=== PATIENT | female | born 1990 | race American Indian/Alaskan Native ===

== ENCOUNTER 2021-06-07 19:49 | Emergency (ER) | payer OTHER, SELFPAY ==
[2021-06-07 19:50] VITALS: BP 121/64; PULSE 90; RESP 16; TEMP 35.8; O2SAT 100; BMI 24.4
== END 2021-06-07 21:11 | disposition left against medical advice (07) ==
PROVIDERS: Emergency Provider Emergency Medicine; PCP Internal Medicine
DX: O26.893 Other specified pregnancy related conditions, third trimester (principal); R10.2 Pelvic and perineal pain; Z3A.29 29 weeks gestation of pregnancy
CPT/HCPCS: 99281; 99282

== ENCOUNTER 2021-07-01 06:55 | Emergency (ER) | payer OTHER, SELFPAY ==
[2021-07-01 06:56] VITALS: BP 98/68; PULSE 95; RESP 18; TEMP 36.6; BMI 27.7
--- NOTE | 2021-07-01 07:13 | ED_ITS ---
HPI - Female Genitourinary General Chief complaint: Urogenital-Female Stated complaint: pelvic pain (33 wks preg) Time Seen by Provider: 07/01/21 07:13 Source: patient Mode of arrival: ambulatory Limitations: no limitations History of Present Illness HPI Narrative: [place] MITCHELL elicited complaint: pelvic pain Pertinent past history: other (33 weeks ) Onset (ago): day(s) (2) Location of symptoms: suprapubic and low back Severity: moderate Quality of pain: cramping and dull Consistency: constant and progressively worsening Vaginal discharge: white Vaginal bleeding: none Exacerbating factors: none Relieving factors: none Associated symptoms: abdominal pain and nausea Treatment prior to arrival: none Patient : Yes Related Data Allergies Allergy/AdvReac Type Severity Reaction Status Date / Time No Known Allergies Allergy Verified 06/07/21 19:54 Review of Systems Review of Systems: Constitutional : No Weight loss, No Fever, No Chills ENT/Mouth : No sore throat, No Rhinorrhea Eyes: No Swelling, No Redness Cardiovascular : No Chest Pain, No SOB, NoEdema Respiratory : No Cough, No Sputum, No Wheezing Gastrointestinal : Positive Nausea, no Vomiting, no Diarrhea, positive abdominal Pain, No Hematochezia, No Melena Genitourinary : No Dysuria, No Urinary Frequency, No Hematuria, No Urgency , pos white vaginal discharge, pos pelvic pain Musculoskeletal : No joint pain, No Myalgias, No Joint Swelling Skin : No Skin Lesions, No rash Neuro : No Weakness, No Numbness, No Dizziness, No Headache Psych : No Anxiety/Panic, No Depression Heme/Lymph: No Bruising, No Lymphadenopathy Endocrine : No Polyuria, No Polydipsia All other systems reviewed and are negative. [facility] Past Medical History Attestation statement: The following information was validated with the patient. Medical History Fibromyalgia Lupus Social History Social History (Updated 07/01/21 @ 07:17 by Ana María Stewart DO) Patient Tobacco Use Status: Never used Tobacco Advance Directives: No Advance Directives Information Provided: No Patient : Yes Physical Exam Vital Signs: Vital Signs: Last Vital Signs Temp 97.9 F 07/01/21 06:56 Pulse 95 07/01/21 06:56 Resp 18 07/01/21 06:56 BP 98/68 07/01/21 06:56 Body Mass Index 27.7 Appearance: Alert. Oriented X3. Anxious in pain mild acute distress. Eyes: Pupils equal, round and reactive to light. ENT: Pharynx normal. Neck: Normal inspection. Neck supple. CVS: Normal heart rate and rhythm. Pulses normal. Respiratory: No respiratory distress. Breath sounds normal. Abdomen: Soft and gravid uterus, ttp in lower area : os open to a fingertip, white discharge noted Skin: Skin warm and dry. Normal skin color. Normal skin turgor. Extremities: No lower extremity edema. No calf ttp Neuro: Oriented X 3. No motor deficit. No sensory deficit. Course Course Course Narrative: call to Dr. Barahona 714am FHT 135, baby head is down at this time on limited bedside [place] [facility] [place] call back from Dr. Greenfield - accepted to [facility] under Dr. Griffith patient VS stable on transfer, report given to EMS 735am MDM - Female Genitourinary MDM Narrative Medical decision making narrative: 31 yo female with lupus - comes in with 2 days of abdominal pain and cramping that has worsened, os open to a fingertip, no gush of fluid, no blood, FHT 130s, at this time given 33 weeks and cramping pain will discuss with her OB [place] [facility] [place] patient. Lab Data Labs: Lab Results 07/01/21 Range/Units 07:24 COVID-19 (EROS) Negative (Negative) COVID-19 Clin Com See Note Critical Care Time Critical Care Time Critical Care Time: Yes Total Critical Care Time: 35 Attestation: medical consult, transfer to tertiary center I attest to this time spent taking care of the patient Discharge Plan Discharge Clinical Impression: Pelvic pain Patient Disposition: Xfer [facility] Transfer Details: [facility] Interventions: Acute Care Transfer Worksheet (ED) Last Done: 07/01/21 07:48 Discharge Date/Time: 07/01/21 07:49
[2021-07-01] MEDS: 0.9 % Sodium Chloride 1,000 ML 999 ML IVCONT (07:26)
[2021-07-01 07:45] LABS: COVID-19 Test Negative (Negative)
== END 2021-07-01 07:49 | disposition short-term general hospital (02) ==
PROVIDERS: Emergency Provider Emergency Medicine; PCP Internal Medicine
DX: O26.93 Pregnancy related conditions, unspecified, third trimester (principal); R10.2 Pelvic and perineal pain; Z3A.33 33 weeks gestation of pregnancy; Z20.822 Contact with and (suspected) exposure to COVID-19
CPT/HCPCS: 36415; 87635; 99285

== ENCOUNTER 2022-01-16 08:14 | Emergency (ER) | payer OTHER, SELFPAY ==
[2022-01-16 08:19] VITALS: BP 129/52; PULSE 75; RESP 16; TEMP 37.2; O2SAT 97; BMI 25.7
--- NOTE | 2022-01-16 09:18 | ED_ITS ---
HPI - Back Pain/Injury General Chief Complaint: Back Pain/Injury Stated Complaint: back pain Time Seen by Provider: 01/16/22 08:39 Source: patient Mode of arrival: ambulatory History of Present Illness HPI Narrative: 31-year-old female with a past medical history of fibromyalgia, lupus, chronic back pain, presenting to the ED complaining of acute on chronic low back pain radiating to upper back x6 months. 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 Denies direct trauma/ injury or fall, numbness, tingling, weakness, urinary incontinence /retention, dysuria/ hematuria. Reports LMP 12/12, concern for possible MD elicited complaint: back pain Pertinent past history: prior back pain Onset (ago): month(s) Related Data Previous Rx's Medication Instructions Recorded acetaminophen 500 mg tablet 500 mg PO Q6H PRN #20 tab 01/16/22 (Tylenol Extra Strength) cyclobenzaprine 5 mg tablet 5 mg PO Q8H PRN 5 Days #14 tab 01/16/22 lidocaine 5 % topical patch 1 patch TOPICAL DAILY PRN #30 ea 01/16/22 (Lidoderm) MDD remove after 12 hours naproxen 500 mg tablet 500 mg PO BID PRN 10 Days #20 tab 01/16/22 Allergies Allergy/AdvReac Type Severity Reaction Status Date / Time No Known Allergies Allergy Verified 06/07/21 19:54 Review of Systems Review of Systems: Constitutional: No Fever, No Chills ENT/Mouth: No Ear Pain, No Nasal Congestion, No sore throat, No Rhinorrhea, No Swallowing Difficulty Cardiovascular: No Chest Pain, No SOB Respiratory: No Cough Gastrointestinal: No Nausea, No Vomiting, No Abdominal pain Genitourinary: No Dysuria, No Urinary Incontinence/retention, No Flank Pain Musculoskeletal: +back pain, No Myalgias, No Joint Swelling Skin: No Skin Lesions, No rash Neuro: No Weakness, No Numbness, No Paresthesias Yes all other systems are reviewed and are negative Neurologic: Denies Sensory deficit (Neuro) [facility] Past Medical History Attestation statement: The following information was validated with the patient. Medical History Fibromyalgia Lupus Social History Social History Patient Tobacco Use Status: Never used Tobacco Advance Directives: No Advance Directives Information Provided: No Physical Exam Vital Signs: Vital Signs: Last Vital Signs Temp 98.9 F 01/16/22 08:19 Pulse 75 01/16/22 08:19 Resp 16 01/16/22 08:19 BP 129/52 L 01/16/22 08:19 Pulse Ox 97 01/16/22 08:19 BMI result Body Mass Index 25.7 Const: General: cooperative, healthy appearing and no acute distress Orientation/consciousness: patient oriented x3 Limitations: no limitations HENMT: Head: Yes normal to inspection Ears: hearing grossly normal bilaterally General nose exam: Normal external nose present Face and sinus: Yes normal facial exam Eyes: General: appearance normal, both eyes and all related structures EOM: EOMs intact bilaterally Neck: Neck: Yes normal visual inspection and Yes no meningeal signs Resp: Effort & Inspection: normal respiratory effort and no respiratory distress Cardio: Rate: regular rate Heart sounds: S1 normal heart sound present and S2 normal heart sound present GI: Inspection: Yes normal to inspection Palpation (GI): Soft to palpation, nontender, no guarding and not rigid : General: Yes no CVA tenderness Back/Spine/Pelvis: Other: no midline thoracic /lumbar spinous tenderness / step-off or deformity. Bilateral paraspinal thoracic and lumbar tenderness Back: no CVA tenderness Skin: Rashes: no rashes Wounds: no wounds Neuro: Other: no saddle anesthesia. Ambulating with steady gait. Strength intact throughout General: patient oriented x3, gait normal, tone normal, moves all extremities and no meningeal signs Gait exam (Neuro): Normal gait present Motor exam (neuro): 5/5 motor strength present throughout Sensory Exam: No Sensory deficit (Neuro) Extrem: General: Yes normal to inspection MDM - Back Pain/Injury MDM Narrative Medical decision making narrative: 31-year-old female with a past medical history of fibromyalgia, lupus, chronic back pain, presenting to the ED complaining of acute on chronic low back pain radiating to upper back x6 months. on exam vital signs stable, NAD/nontoxic appearing, no midline spinous tenderness throughout, no red flag symptoms, ambulating with steady gait. Concern for MSK pain /strain/muscle spasming vs radiculopathy. Low concern for cauda equina /cord compression, fracture or UTI/ pyelo/stone. Will rule out Plan: Urine , symptomatic treatment Differential Diagnosis Differential diagnosis: Likely lumbar radiculopathy Medical Records Attestation: I reviewed the patient's medical records. Lab Data Attestation: I reviewed the patient's lab results. Labs: Lab Results 01/16/22 Range/Units 09:22 Urine Test NEGATIVE (NEGATIVE) Discharge Plan Discharge Clinical Impression: Back pain Patient Disposition: Home, Self-Care Instructions: Back Pain (ED) Additional Instructions: your was negative Your pain is likely musculoskeletal Flexeril is a muscle relaxer, take at night as it makes you drowsy, do not drive, drink alcohol, or operate machinery while taking it Naproxen as an anti-inflammatory / pain medication, take with food Lidoderm patches are numbing patches, apply to painful area In addition take Tylenol at home If symptoms persist or worsen, pain becomes unbearable, you developed urinary retention or incontinence, or weakness return to the ED Prescriptions: New acetaminophen [Tylenol Extra Strength] 500 mg tablet 500 mg PO Q6H PRN (Reason: pain or fever) Qty: 20 0RF lidocaine [Lidoderm] 5 % adhesive patch,medicated 1 patch topical DAILY MDD remove after 12 hours PRN (Reason: pain) Qty: 30 0RF Rx Instructions: leave on most painful area for up to 12 hrs naproxen 500 mg tablet 500 mg PO BID PRN (Reason: pain) 10 Days Qty: 20 0RF cyclobenzaprine 5 mg tablet 5 mg PO Q8H PRN (Reason: pain (scale score 7-10)) 5 Days Qty: 14 0RF Referrals: Zhane Orta MD [Primary Care Provider] - 5 days Stand Alone Forms: Work/School Release Interventions: ED Discharge Assessment Last Done: 01/16/22 10:19 Discharge Date/Time: 01/16/22 10:20
[2022-01-16 09:45] LABS: UPreg QC Valid YES; Urine Pregnancy NEGATIVE (NEGATIVE)
[2022-01-16] MEDS: Lidocaine 4 % Patch ADH..PATCH 1 PATCH TRANSDERMA (10:12)
[2022-01-16] MEDS: Ketorolac Tromethamine 30 MG/ML VIAL IM (10:13)
== END 2022-01-16 10:20 | disposition home or self-care (01) ==
PROVIDERS: Physician Assistant; Emergency Provider Emergency Medicine; PCP Internal Medicine
DX: M54.9 Dorsalgia, unspecified (principal)
CPT/HCPCS: 81025; 96372; 99284; J1885

== ENCOUNTER 2023-02-19 07:03 | Emergency (ER) | payer OTHER, SELFPAY ==
--- NOTE | ~2023-02-19 | XR_ITS ---
EXAMINATION: XR LUMBOSACRAL SPINE CLINICAL INFORMATION: Back pain, history of lupus. COMPARISON: None available. TECHNIQUE: Three views of the lumbosacral spine. FINDINGS: There is normal lumbar lordosis and spinal alignment. The vertebral bodies and intervertebral disc spaces are unremarkable. Mild anterior osteophyte formation at L1-2 and L2-3. The soft tissues are unremarkable. XR/XR lumbar spine 2-3V IMPRESSION: Mild anterior osteophyte formation at L1-2 and L2-3 without other significant abnormality.
[2023-02-19 07:11] VITALS: BP 108/64; PULSE 78; RESP 14; TEMP 37.1; O2SAT 98; BMI 26.7
--- NOTE | 2023-02-19 07:46 | PC.NURSE ---
Patient with complaint of spontaneous lower back pain no recent injury/trauma works as [employer]. [employer]OUT with purpose ambulates with slow steady gait. Patient reports some back issues while but not issue recently. AOx 4 neuros intact patient denies any incontinence will CTM
[2023-02-19 08:02] LABS: Appearance Urine Clear; Color Urine Dark Yellow; Glucose Urine UA Negative (Negative); Leukocyte Esterase Urine Trace (Negative); Nitrite Urine Negative (Negative); PH 5.5 (5.0-9.0); Specific Gravity - Urine >= 1.030 (1.005-1.025); UMIC TRIGGER UACC YES; Urine Blood Negative (Negative); Urine Ketones Negative (Negative); Urine Protein Trace mg/dL (Neg-Trace)
[2023-02-19 08:03] LABS: UPreg QC Valid YES; Urine Pregnancy NEGATIVE (NEGATIVE)
[2023-02-19 08:07] LABS: Bacteria Urine 2+ (None Seen); RBC Urine 0-2 /HPF (0-2); Squamous Epithelial Cell Urine >20 /HPF (0-2); UACC Culture Trigger YES
--- NOTE | 2023-02-19 08:17 | ED.BACK ---
HPI - Back Pain/Injury General Chief Complaint: Back Pain/Injury Stated Complaint: back pain Time Seen by Provider: 02/19/23 07:25 Source: patient Mode of arrival: ambulatory History of Present Illness HPI Narrative: This is a 32-year-old female who has known lupus and presents with complaints of acute on chronic mid lower back pain this started yesterday when she picked her child up and has not been associated with any fever, chills, at nausea/vomiting, diarrhea, urinary symptoms, or pain/weakness down either lower extremity. Patient states that she was seen by her charge master coordinator yesterday for her lupus and is currently on hydroxychloroquine and 1 other medication. Related Data Previous Rx's Medication Instructions Recorded acetaminophen 500 mg tablet 500 mg PO Q6H PRN pain or fever 01/16/22 (Tylenol Extra Strength) #20 tabs cyclobenzaprine 5 mg tablet 5 mg PO Q8H PRN pain (scale score 01/16/22 7-10) 5 days #14 tabs lidocaine 5 % topical patch 1 patch topical DAILY PRN pain #30 01/16/22 (Lidoderm) ea naproxen 500 mg tablet 500 mg PO BID PRN pain 10 days #20 07/07/22 tabs Allergies Allergy/AdvReac Type Severity Reaction Status Date / Time No Known Allergies Allergy Verified 07/06/22 13:35 Review of Systems Review of Systems: Pertinent positives and negatives as stated in HPI [facility] Past Medical History Source: nursing notes reviewed Medical History Fibromyalgia Lupus Social History Social History Alcohol intake: unknown Patient Tobacco Use Status: Never used Tobacco Smoked in Last 30 Days: No Use of substances other than those prescribed or required for medical reasons: Unknown Advance Directives: No Advance Directives Information Provided: Yes Physical Exam Vital Signs: Vital Signs: Last Vital Signs Temp 98.8 F 02/19/23 07:11 Pulse 78 02/19/23 07:11 Resp 14 02/19/23 07:11 BP 108/64 02/19/23 07:11 Pulse Ox 98 02/19/23 07:11 O2 Del Method Room Air 02/19/23 07:11 BMI result Body Mass Index 26.7 VITAL SIGNS: Reviewed. GENERAL: Well developed, well nourished, in no acute distress. HEAD: Normocephalic/atraumatic, patient has malar rash EYES: PERRLA, EOMI NECK: Supple, no adenopathy, no midline cervical spine tenderness or step-offs LUNGS: Normal breath sounds. No adventitious sounds or accessory muscle use. SpO2<98> CARDIOVASCULAR: Regular rate and rhythm without noted murmurs ABDOMEN: Soft, non-tender, non-distended with bowel sounds. BACK: Reported tenderness to palpation over mid vertebral at approximate L2 without noted step-offs, there is no fluctuance/erythema MUSCULOSKELETAL: No tenderness, deformities, or effusions noted on gross inspection. EXTREMITIES: No cyanosis, clubbing or edema. SKIN: Inspection of the skin reveals no rashes NEUROLOGIC: Alert and oriented x 4. Strength and sensation to light touch were grossly intact x 4. Medications Administered Discontinued Medications Generic Name Dose Route Start Last Admin Trade Name Freq PRN Reason Stop Dose Admin Acetaminophen 975 mg 02/19/23 08:24 02/19/23 08:50 Acetaminophen 325 Mg Tablet PO 02/19/23 08:25 975 mg ONCE ONE Administration Ibuprofen 400 mg 02/19/23 08:24 02/19/23 08:50 Ibuprofen 400 Mg Tablet PO 02/19/23 08:25 400 mg ONCE ONE Administration Lidocaine 1 patch 02/19/23 08:24 02/19/23 08:49 Lidocaine 4 % Patch Adh..Patch TRANSDERMA 02/19/23 08:25 1 patch ONCE ONE Administration Protocol Medical Decision Making Medical Decision Making MDM Narrative: This is a 32-year-old female with known lupus and known chronic back pain, no red flag symptoms, no concerns for abscess/cauda equina in suspect strictly musculoskeletal. Will get basic labs. 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 I reviewed all investigations in my interpretation is this patient has acute on chronic back pain, there is no elevation of the ESR to suggest lupus exacerbation and all other findings are within normal limits. Patient is otherwise discharged home with instructions follow-up with her primary care provider. Differential Diagnosis Please see the discussion above Lab Data Please see the discussion above 02/19/23 08:13 02/19/23 08:13 Labs: Lab Results 02/19/23 02/19/23 02/19/23 Range/Units 07:52 07:52 08:13 WBC 7.4 (4.8-10.8) X10*3/uL RBC 4.58 (4.20-5.50) X10*6/uL Hgb 13.3 (12.0-16.0) g/dl Hct 39.7 (37.0-47.0) % MCV 86.7 (80.0-98.0) fL MCH 29.0 (27.0-33.0) pg MCHC 33.5 (31.0-35.0) g/dl RDW 12.5 (11.0-16.0) % Plt Count 249 (160-400) X10*3/uL MPV 10.2 (9.4-12.3) fL Immature Gran % (Auto) 0.1 (0.0-0.4) % Neut % (Auto) 72.9 (45-73) % Lymph % (Auto) 18.8 L (20-40) % [place] % (Auto) 5.7 (2-11) % Eos % (Auto) 1.7 (0-4) % Baso % (Auto) 0.8 (0-2) % Lymph # (Auto) 1.4 (1.2-4.9) X10*3/uL [place] # (Auto) 0.4 (0.1-1.2) X10*3/uL Eos # (Auto) 0.1 (0.0-0.4) X10*3/uL Baso # (Auto) 0.1 (0.0-0.2) X10*3/uL Abs Immat Gran (auto) 0.01 (0.00-0.03) X10*3/uL Absolute Neuts (auto) 5.4 (2.0-8.3) x10*3/uL Absolute Nucleated RBC 0.000 (0.0-0.012) X10*3/uL Nucleated RBC % (auto) 0.0 (0.0-0.2) /100WBC ESR (0-20) MM/HR Sodium (135-145) mmol/L Potassium (3.3-5.1) mmol/L Chloride (96-108) mmol/L Carbon Dioxide (22-29) mmol/L Anion Gap (12-20) BUN (9-16) mg/dL Creatinine (0.5-1.4) mg/dL Estim Creat Clear Calc Estimated GFR Random Glucose (60-115) mg/dL Calcium (8.4-10.2) mg/dL Total Bilirubin (0.0-1.0) mg/dL AST (5-31) U/L ALT (0-31) U/L Alkaline Phosphatase (39-117) U/L Total Protein (6.5-8.0) g/dL Albumin (3.5-5.0) g/dL Urine Color Dark Yellow Urine Appearance Clear Urine pH 5.5 (5.0-9.0) Ur Specific [place] >= 1.030 H (1.005-1.025) Urine Protein Trace (Neg-Trace) mg/dL Urine Glucose (UA) Negative (Negative) mg/dL Urine Ketones Negative (Negative) mg/dL Urine Blood Negative (Negative) Urine Nitrite Negative (Negative) Ur Leukocyte Esterase Trace H (Negative) Urine RBC 0-2 (0-2) /HPF Urine WBC 6-10 H (0-5) /HPF Ur Squamous Epith Cells >20 (0-2) /HPF Urine Bacteria 2+ (None Seen) Hyaline Casts 3-5 (0-2) /LPF Urine Test NEGATIVE (NEGATIVE) 02/19/23 02/19/23 Range/Units 08:13 08:13 WBC (4.8-10.8) X10*3/uL RBC (4.20-5.50) X10*6/uL Hgb (12.0-16.0) g/dl Hct (37.0-47.0) % MCV (80.0-98.0) fL MCH (27.0-33.0) pg MCHC (31.0-35.0) g/dl RDW (11.0-16.0) % Plt Count (160-400) X10*3/uL MPV (9.4-12.3) fL Immature Gran % (Auto) (0.0-0.4) % Neut % (Auto) (45-73) % Lymph % (Auto) (20-40) % [place] % (Auto) (2-11) % Eos % (Auto) (0-4) % Baso % (Auto) (0-2) % Lymph # (Auto) (1.2-4.9) X10*3/uL [place] # (Auto) (0.1-1.2) X10*3/uL Eos # (Auto) (0.0-0.4) X10*3/uL Baso # (Auto) (0.0-0.2) X10*3/uL Abs Immat Gran (auto) (0.00-0.03) X10*3/uL Absolute Neuts (auto) (2.0-8.3) x10*3/uL Absolute Nucleated RBC (0.0-0.012) X10*3/uL Nucleated RBC % (auto) (0.0-0.2) /100WBC ESR 14 (0-20) MM/HR Sodium 140 (135-145) mmol/L Potassium 3.7 (3.3-5.1) mmol/L Chloride 107 (96-108) mmol/L Carbon Dioxide 22 (22-29) mmol/L Anion Gap 15 (12-20) BUN 8 L (9-16) mg/dL Creatinine 0.74 (0.5-1.4) mg/dL Estim Creat Clear Calc 91.5 Estimated GFR > 60 Random Glucose 90 (60-115) mg/dL Calcium 8.6 (8.4-10.2) mg/dL Total Bilirubin 0.6 (0.0-1.0) mg/dL AST 13 (5-31) U/L ALT 13 (0-31) U/L Alkaline Phosphatase 123 H (39-117) U/L Total Protein 6.9 (6.5-8.0) g/dL Albumin 4.1 (3.5-5.0) g/dL Urine Color Urine Appearance Urine pH (5.0-9.0) Ur Specific [place] (1.005-1.025) Urine Protein (Neg-Trace) mg/dL Urine Glucose (UA) (Negative) mg/dL Urine Ketones (Negative) mg/dL Urine Blood (Negative) Urine Nitrite (Negative) Ur Leukocyte Esterase (Negative) Urine RBC (0-2) /HPF Urine WBC (0-5) /HPF Ur Squamous Epith Cells (0-2) /HPF Urine Bacteria (None Seen) Hyaline Casts (0-2) /LPF Urine Test (NEGATIVE) Radiology Impression Radiologist Impression: My interpretation is in agreement with radiology's impression of the imaging studies. External Record Review External record reviewed: Outpatient record and Prior outpatient labs Discharge Plan Discharge Clinical Impression: Acute exacerbation of chronic low back pain Patient Disposition: Home, Self-Care Instructions: Lower Back Exercises (ED), Low Back Strain (ED), Back Pain (ED) Additional Instructions: 1. I recommend [id number] Tylenol/ibuprofen as needed for pain control in addition to lidocaine patch. 2. Follow-up with your primary care provider as this person will be able to refer you to physical therapy as needed. Return to the ER for any other worsening symptoms Prescriptions: No Action naproxen 500 mg tablet 500 mg PO BID PRN (Reason: pain) 10 Days Qty: 20 0RF acetaminophen [Tylenol Extra Strength] 500 mg tablet 500 mg PO Q6H PRN (Reason: pain or fever) Qty: 20 0RF lidocaine [Lidoderm] 5 % adhesive patch,medicated 1 patch topical DAILY MDD remove after 12 hours PRN (Reason: pain) Qty: 30 0RF Rx Instructions: leave on most painful area for up to 12 hrs cyclobenzaprine 5 mg tablet 5 mg PO Q8H PRN (Reason: pain (scale score 7-10)) 5 Days Qty: 14 0RF Referrals: Zhane Orta MD [Primary Care Provider] -
[2023-02-19 08:18] LABS: MANUAL DIFF FLAG NO
[2023-02-19 08:22] LABS: Basophils Absolute Auto 0.1 X10*3/uL (0.0-0.2); Basophils Percent Auto 0.8 % (0-2); Eosinophils Absolute Auto 0.1 X10*3/uL (0.0-0.4); Eosinophils Percent Auto 1.7 % (0-4); Hematocrit 39.7 % (37.0-47.0); Hemoglobin 13.3 g/dl (12.0-16.0); Imm Gran Abs Auto 0.01 X10*3/uL (0.00-0.03); Imm Gran Pct Auto 0.1 % (0.0-0.4); Lymphocytes Absolute Auto 1.4 X10*3/uL (1.2-4.9); Lymphocytes Percent Auto 18.8 % (20-40); Mean Corpuscular HGB Conc 33.5 g/dl (31.0-35.0); Mean Corpuscular Volume 86.7 fL (80.0-98.0); Mean Platelet Volume 10.2 fL (9.4-12.3); Monocytes Absolute Auto 0.4 X10*3/uL (0.1-1.2); Monocytes Percent Auto 5.7 % (2-11); Neutrophils Absolute Auto 5.4 x10*3/uL (2.0-8.3); Neutrophils Percent Auto 72.9 % (45-73); Platelet Count 249 X10*3/uL (160-400); Red Blood Count 4.58 X10*6/uL (4.20-5.50); Red Cell Distribution Width 12.5 % (11.0-16.0); White Blood Count 7.4 X10*3/uL (4.8-10.8)
[2023-02-19 08:35] LABS: Alanine Aminotransferase 13 U/L (0-31); Albumin Level 4.1 g/dL (3.5-5.0); Alkaline Phosphatase 123 U/L (39-117); Anion Gap 15 (12-20); Aspartate Amino Transferase 13 U/L (5-31); Bilirubin Total 0.6 mg/dL (0.0-1.0); Blood Urea Nitrogen 8 mg/dL (9-16); Calcium 8.6 mg/dL (8.4-10.2); Carbon Dioxide 22 mmol/L (22-29); Chloride 107 mmol/L (96-108); Creatinine Clr Calc Pharmacy 91.5; Estimated Glomerular Filt Rate > 60; Glucose Random 90 mg/dL (60-115); Potassium 3.7 mmol/L (3.3-5.1); Sodium 140 mmol/L (135-145); Total Protein 6.9 g/dL (6.5-8.0)
[2023-02-19] MEDS: Lidocaine 4 % Patch ADH..PATCH 1 PATCH TRANSDERMA (08:49)
[2023-02-19] MEDS: Acetaminophen 325 MG TABLET 975 MG PO (08:50)
[2023-02-19] MEDS: Ibuprofen 400 MG TABLET PO (08:50)
[2023-02-19 09:08] LABS: Erythrocyte Sedimentation Rate 14 MM/HR (0-20)
[2023-02-19 09:29] VITALS: BP 100/71; PULSE 75; RESP 18; TEMP 36.9; O2SAT 98
== END 2023-02-19 09:36 | disposition home or self-care (01) ==
PROVIDERS: Emergency Provider Student in an Organized Health Care Education/Training Program; PCP Internal Medicine
DX: M54.50 Low back pain, unspecified (principal); Z20.822 Contact with and (suspected) exposure to COVID-19; Z20.828 Contact with and (suspected) exposure to other viral communicable diseases
CPT/HCPCS: 36415; 72100; 80053; 81001; 81003; 81025; 85025; 85652; 87086; 99283; 99284

== ENCOUNTER 2023-04-12 08:11 | Emergency (ER) | payer OTHER, SELFPAY ==
[2023-04-12 08:17] VITALS: BP 116/70; PULSE 78; RESP 18; TEMP 35.9; O2SAT 97; BMI 26.8
--- NOTE | 2023-04-12 08:44 | ECG_ITS ---
Test Reason : Insomnia / Anxiety Blood Pressure : / mmHG Vent. Rate : 064 BPM Atrial Rate : 064 BPM P-R Int : 150 ms QRS Dur : 080 ms QT Int : 410 ms P-R-T Axes : 053 004 013 degrees QTc Int : 422 ms Normal sinus rhythm Normal ECG When compared with ECG of 08-JAN-2020 21:22, No significant change was found Referred By: Nancy Wells Electronically Signed By:Wicho Castro
[2023-04-12 09:04] VITALS: BP 102/64; PULSE 78; RESP 20; TEMP 36.8; O2SAT 99
--- NOTE | 2023-04-12 09:07 | ED_ITS ---
HPI - General Adult General Chief complaint: Psychiatric Symptoms Stated complaint: Crying for no reason Time Seen by Provider: 04/12/23 08:29 Source: patient and RN notes reviewed Mode of arrival: ambulatory Limitations: no limitations History of Present Illness HPI narrative: This is a 33-year-old female, with a past medical history of lupus, presents emergency department with complaints of ?crying for no reason for the last week. Patient reports that she is a single mother of 4 children and reports that she has been feeling overwhelmed over the last several months and has had trouble with her depression, and reports that this past week this has worsened. She states that her emotions have been ?all over the place?, states that she will be happy, sad, frustrated within a short time frame. She states that over the last 4 days she has not been able to sleep as her mind has been racing with the stress that she is having. Patient reports that she has a history of depression and was previously prescribed antidepressants in her teenage years. She also admits that she had depression after having her child, reports her youngest is 1 years old. She denies any suicidal or homicidal ideations. Yes she reports that she feels safe at home, and she would never harm her children. No other complaints or concerns at this time. MD complaint: Depression, anxiety Related Data Previous Rx's Medication Instructions Recorded acetaminophen 500 mg tablet 500 mg PO Q6H PRN pain or fever 01/16/22 (Tylenol Extra Strength) #20 tabs cyclobenzaprine 5 mg tablet 5 mg PO Q8H PRN pain (scale score 01/16/22 7-10) 5 days #14 tabs lidocaine 5 % topical patch 1 patch topical DAILY PRN pain #30 01/16/22 (Lidoderm) ea naproxen 500 mg tablet 500 mg PO BID PRN pain 10 days #20 07/07/22 tabs diphenhydramine HCl 25 mg tablet 25 mg PO BEDTIME PRN sleep #14 tabs 04/12/23 (Benadryl Allergy) melatonin 5 mg tablet 5 mg PO BEDTIME PRN sleep #10 tabs 04/12/23 Allergies Allergy/AdvReac Type Severity Reaction Status Date / Time No Known Allergies Allergy Verified 04/12/23 08:17 Review of Systems Review of Systems: Constitutional: No Weight loss, No Fever, No Chills, No Night Sweats, No Fatigue, No Malaise ENT/Mouth: No Hearing loss, No Ear Pain, No Nasal Congestion, No Sinus Pain, No Hoarseness, No sore throat, No Rhinorrhea, No Swallowing Difficulty Eyes: No Eye Pain, No Swelling, No Redness, No Foreign Body, No Discharge, No Vision Changes Cardiovascular: No Chest Pain, No SOB, No Dyspnea on Exertion, No Orthopnea, No Edema, No Palpitations Respiratory: No Cough, No Sputum, No Wheezing, No Smoke Exposure, No Dyspnea Gastrointestinal: No Nausea, No Vomiting, No Diarrhea, No Constipation, No Abdominal pain, No Hematochezia, No Melena Genitourinary: No irregular bleeding, No Dysuria, No Urinary Frequency, No Hematuria, No Urinary Incontinence/retention, No Urgency, No Flank Pain, No Urinary Flow Changes, No Hesitancy Musculoskeletal: No joint pain, No Myalgias, No Joint Swelling Skin: No Skin Lesions, No rash Neuro: No Weakness, No Numbness, No Paresthesias, No Loss of Consciousness, No Dizziness, No Headache Psych: No Anxiety/Panic, No Depression, No SI/HI/AH/VH, No Social Issues, Heme/Lymph: No Bruising, No Bleeding,No Lymphadenopathy Endocrine: No Polyuria, No Polydipsia, No Temperature Intolerance Yes all other systems are reviewed and are negative Constitutional: Constitutional: Reports as per [facility] [facility] Past Medical History Medical History Fibromyalgia Lupus Social History Social History Alcohol intake: unknown Patient Tobacco Use Status: Never used Tobacco Physical Exam ED Vital Signs: Vital Signs - 24 hr 04/12/23 08:17 04/12/23 09:04 04/12/23 12:00 Temperature 96.6 F L 98.2 F Pulse Rate 78 78 69 Respiratory Rate 18 20 18 Blood Pressure 116/70 102/64 115/79 Pulse Oximetry 97 99 99 Oxygen Delivery Method Room Air Room Air Room Air BMI result Body Mass Index 26.8 Const General: cooperative, comfortable and no acute distress Orientation/consciousness: patient oriented x3 Limitations: no limitations HENMT Head: Yes normal to inspection, Yes normocephalic and Yes atraumatic Ears: hearing grossly normal bilaterally General nose exam: Normal external nose present Face and sinus: Yes normal facial exam Mouth: Normal oral and palatal mucosa present, oropharynx normal and moist mucous membranes Throat: Yes posterior oropharynx normal Eyes General: appearance normal, both eyes and all related structures Eyelids: Yes eyelids normal Conjunctivae: conjunctivae normal Sclerae: sclerae normal Pupils: Equal, round and reactive pupils present EOM: EOMs intact bilaterally Neck Neck: Yes normal visual inspection, Yes full ROM and Yes no lymphadenopathy Lymphatic: no lymphadenopathy noted Chest Chest palpation & inspection: normal inspection of the chest Resp Effort & Inspection: normal respiratory effort and able to speak in complete sentences Auscultation: clear to auscultation bilaterally, no crackles, no rales, no rhonchi and no wheezes Cardio Rate: regular rate Rhythm: regular rhythm Heart sounds: S1 normal heart sound present and S2 normal heart sound present GI Inspection: Yes normal to inspection Skin General skin exam: no rashes or lesions noted Trauma: no lacerations or abrasions Wounds: no wounds Neuro General: patient oriented x3 and moves all extremities Cranial nerves: Yes Equal, round and reactive pupils present Extrem General: Yes normal to inspection Right upper extremity: normal to inspection Left upper extremity: normal to inspection Right lower extremity: normal to inspection Left lower extremity: normal to inspection Psych Appearance: well kempt Mental Status: mental status grossly normal Speech and movement: Normal speech and movement present Affect: Sad affect present and Anxious affect present Attitude: cooperative Thought process: Normal thought process present Thought content: Normal thought content present Course Reevaluation(s) Reevaluation #1: Patient seen and evaluated by CARE team who suggest that a partial program would be beneficial for, starting sometime this week. Lab workup today is unremarkable, total T3 is still pending (send out lab) however TSH and free T4 is normal. Patient has no SI or HI and is feeling safe at. Patient's vital signs are stable, I think it is appropriate to send patient home with a prescription to help with anxiety and insomnia. Discussed this with patient at bedside. Patient is hopeful and grateful for having the services set up through the emergency department today. Patient is stable for discharge Time: 12:13 Medical Decision Making Medical Decision Making MDM Narrative: 33-year-old female presenting to the emergency department for evaluation of worsening sadness and depression. She had a child 1 year ago and has had depression ever since. On exam, patient is tearful, and explains that she is ?crying for no reason?. She has no suicidal or homicidal ideations. She feels safe at home. There is no one at home harming her and does not feel as though she is a threat to her children. She is a single mom and is overwhelmed by the amount of pressure that she is undergoing as well as working a full-time job. She reports that she has no support raising her children. Plan: Basic blood work, EKG, thyroid panel, UA, urine drug screen, ethanol level. Care team for Differential Diagnosis Differential Diagnoses: The differential diagnosis associated with the presentation includes Depression, anxiety, thyroiditis, hypothyroidism, depression Admission/Observation Consideration of admission/observation: Escalation of care including admission/observation considered Lab Data MDM Lab Attestation statement: I reviewed the patient's lab results. 04/12/23 09:10 04/12/23 09:10 Labs: Lab Results 04/12/23 04/12/23 04/12/23 Range/Units 09:10 09:10 09:10 WBC 7.0 (4.8-10.8) X10*3/uL RBC 4.60 (4.20-5.50) X10*6/uL Hgb 13.2 (12.0-16.0) g/dl Hct 39.8 (37.0-47.0) % MCV 86.5 (80.0-98.0) fL MCH 28.7 (27.0-33.0) pg MCHC 33.2 (31.0-35.0) g/dl RDW 12.4 (11.0-16.0) % Plt Count 246 (160-400) X10*3/uL MPV 9.9 (9.4-12.3) fL Immature Gran % (Auto) 0.4 (0.0-0.4) % Neut % (Auto) 71.4 (45-73) % Lymph % (Auto) 19.9 L (20-40) % Benson % (Auto) 6.0 (2-11) % Eos % (Auto) 1.3 (0-4) % Baso % (Auto) 1.0 (0-2) % Lymph # (Auto) 1.4 (1.2-4.9) X10*3/uL Benson # (Auto) 0.4 (0.1-1.2) X10*3/uL Eos # (Auto) 0.1 (0.0-0.4) X10*3/uL Baso # (Auto) 0.1 (0.0-0.2) X10*3/uL Abs Immat Gran (auto) 0.03 (0.00-0.03) X10*3/uL Absolute Neuts (auto) 5.0 (2.0-8.3) x10*3/uL Absolute Nucleated RBC 0.000 (0.0-0.012) X10*3/uL Nucleated RBC % (auto) 0.0 (0.0-0.2) /100WBC Sodium 139 (135-145) mmol/L Potassium 4.0 (3.3-5.1) mmol/L Chloride 105 (96-108) mmol/L Carbon Dioxide 25 (22-29) mmol/L Anion Gap 13 (12-20) BUN 6 L (9-16) mg/dL Creatinine 0.77 (0.5-1.4) mg/dL Estim Creat Clear Calc 87.1 Estimated GFR > 60 Random Glucose 94 (60-115) mg/dL Calcium 8.9 (8.4-10.2) mg/dL Magnesium 1.9 (1.6-2.6) mg/dL Total Bilirubin 0.6 (0.0-1.0) mg/dL Direct Bilirubin 0.2 (0.0-0.5) mg/dL AST 13 (5-31) U/L ALT 13 (0-31) U/L Alkaline Phosphatase 128 H (39-117) U/L Total Protein 6.9 (6.5-8.0) g/dL Albumin 4.1 (3.5-5.0) g/dL Lipase 18 (8-78) U/L TSH 1.53 (0.32-4.0) uIU/mL Free T4 0.98 (0.71-1.85) ng/dL Urine Color Dark Yellow Urine Appearance Cloudy Urine pH 6.0 (5.0-9.0) Ur Specific [place] >= 1.030 H (1.005-1.025) Urine Protein Trace (Neg-Trace) mg/dL Urine Glucose (UA) Negative (Negative) mg/dL Urine Ketones Trace (Negative) mg/dL Urine Blood Negative (Negative) Urine Nitrite Negative (Negative) Ur Leukocyte Esterase Small (1+) H (Negative) Urine RBC 0-2 (0-2) /HPF Urine WBC 6-10 H (0-5) /HPF Ur Squamous Epith Cells 11-20 (0-2) /HPF Urine Bacteria 1+ (None Seen) Hyaline Casts 0-2 (0-2) /LPF Urine Test (NEGATIVE) Urine Opiates Screen (Not Detect) Urine Fentanyl Screen (Not Detect) Ur Barbiturates Screen (Not Detect) Ur Phencyclidine Scrn (Not Detect) Ur Amphetamines Screen (Not Detect) U Benzodiazepines Scrn (Not Detect) Urine Cocaine Screen (Not Detect) U Marijuana (THC) Screen (Not Detect) Ethyl Alcohol < 10 mg/dL 04/12/23 04/12/23 Range/Units 09:10 09:10 WBC (4.8-10.8) X10*3/uL RBC (4.20-5.50) X10*6/uL Hgb (12.0-16.0) g/dl Hct (37.0-47.0) % MCV (80.0-98.0) fL MCH (27.0-33.0) pg MCHC (31.0-35.0) g/dl RDW (11.0-16.0) % Plt Count (160-400) X10*3/uL MPV (9.4-12.3) fL Immature Gran % (Auto) (0.0-0.4) % Neut % (Auto) (45-73) % Lymph % (Auto) (20-40) % Benson % (Auto) (2-11) % Eos % (Auto) (0-4) % Baso % (Auto) (0-2) % Lymph # (Auto) (1.2-4.9) X10*3/uL Benson # (Auto) (0.1-1.2) X10*3/uL Eos # (Auto) (0.0-0.4) X10*3/uL Baso # (Auto) (0.0-0.2) X10*3/uL Abs Immat Gran (auto) (0.00-0.03) X10*3/uL Absolute Neuts (auto) (2.0-8.3) x10*3/uL Absolute Nucleated RBC (0.0-0.012) X10*3/uL Nucleated RBC % (auto) (0.0-0.2) /100WBC Sodium (135-145) mmol/L Potassium (3.3-5.1) mmol/L Chloride (96-108) mmol/L Carbon Dioxide (22-29) mmol/L Anion Gap (12-20) BUN (9-16) mg/dL Creatinine (0.5-1.4) mg/dL Estim Creat Clear Calc Estimated GFR Random Glucose (60-115) mg/dL Calcium (8.4-10.2) mg/dL Magnesium (1.6-2.6) mg/dL Total Bilirubin (0.0-1.0) mg/dL Direct Bilirubin (0.0-0.5) mg/dL AST (5-31) U/L ALT (0-31) U/L Alkaline Phosphatase (39-117) U/L Total Protein (6.5-8.0) g/dL Albumin (3.5-5.0) g/dL Lipase (8-78) U/L TSH (0.32-4.0) uIU/mL Free T4 (0.71-1.85) ng/dL Urine Color Urine Appearance Urine pH (5.0-9.0) Ur Specific [place] (1.005-1.025) Urine Protein (Neg-Trace) mg/dL Urine Glucose (UA) (Negative) mg/dL Urine Ketones (Negative) mg/dL Urine Blood (Negative) Urine Nitrite (Negative) Ur Leukocyte Esterase (Negative) Urine RBC (0-2) /HPF Urine WBC (0-5) /HPF Ur Squamous Epith Cells (0-2) /HPF Urine Bacteria (None Seen) Hyaline Casts (0-2) /LPF Urine Test NEGATIVE (NEGATIVE) Urine Opiates Screen Not Detected (Not Detect) Urine Fentanyl Screen Not Detected (Not Detect) Ur Barbiturates Screen Not Detected (Not Detect) Ur Phencyclidine Scrn Not Detected (Not Detect) Ur Amphetamines Screen Not Detected (Not Detect) U Benzodiazepines Scrn Not Detected (Not Detect) Urine Cocaine Screen Not Detected (Not Detect) U Marijuana (THC) Screen Not Detected (Not Detect) Ethyl Alcohol mg/dL Radiology Impression Discussion of test interpretation with radiology: I have reviewed the radiologist's reading. External Record Review External record reviewed: Inpatient record, Office record, Outpatient record, Prior outpatient labs, Prior outpatient radiology, Primary care record and Outside ED record Discharge Plan Discharge Clinical Impression: Anxiety, Insomnia, Sadness Patient Disposition: Home, Self-Care Instructions: Depression (DC), Depression (ED), Anxiety (ED) Additional Instructions: Please follow-up with the partial program. They will be calling you for further details. You may take prescribed medications as needed to help facilitate with sleep. Please be aware that these medications will cause drowsiness, do not drink alcohol or drive while taking this medication. Only take these medications at night. If any new or worsening symptoms occur please return for re-evaluation. Prescriptions: New diphenhydramine HCl [Benadryl Allergy] 25 mg tablet 25 mg PO BEDTIME MDD may take 2 tabs prn PRN (Reason: sleep) Qty: 14 0RF melatonin 5 mg tablet 5 mg PO BEDTIME PRN (Reason: sleep) Qty: 10 0RF No Action naproxen 500 mg tablet 500 mg PO BID PRN (Reason: pain) 10 Days Qty: 20 0RF acetaminophen [Tylenol Extra Strength] 500 mg tablet 500 mg PO Q6H PRN (Reason: pain or fever) Qty: 20 0RF lidocaine [Lidoderm] 5 % adhesive patch,medicated 1 patch topical DAILY MDD remove after 12 hours PRN (Reason: pain) Qty: 30 0RF Rx Instructions: leave on most painful area for up to 12 hrs cyclobenzaprine 5 mg tablet 5 mg PO Q8H PRN (Reason: pain (scale score 7-10)) 5 Days Qty: 14 0RF Interventions: Smiley-Suicide Risk Severity Scale Last Done: 04/12/23 08:30 ED Discharge Assessment Last Done: 04/12/23 12:35 Discharge Date/Time: 04/12/23 12:36
[2023-04-12 09:20] LABS: MANUAL DIFF FLAG NO
[2023-04-12 09:24] LABS: Basophils Absolute Auto 0.1 X10*3/uL (0.0-0.2); Eosinophils Absolute Auto 0.1 X10*3/uL (0.0-0.4); Eosinophils Percent Auto 1.3 % (0-4); Hematocrit 39.8 % (37.0-47.0); Hemoglobin 13.2 g/dl (12.0-16.0); Imm Gran Abs Auto 0.03 X10*3/uL (0.00-0.03); Imm Gran Pct Auto 0.4 % (0.0-0.4); Lymphocytes Absolute Auto 1.4 X10*3/uL (1.2-4.9); Lymphocytes Percent Auto 19.9 % (20-40); Mean Corpuscular HGB Conc 33.2 g/dl (31.0-35.0); Mean Corpuscular Hemoglobin 28.7 pg (27.0-33.0); Mean Corpuscular Volume 86.5 fL (80.0-98.0); Mean Platelet Volume 9.9 fL (9.4-12.3); Monocytes Absolute Auto 0.4 X10*3/uL (0.1-1.2); Neutrophils Percent Auto 71.4 % (45-73); Platelet Count 246 X10*3/uL (160-400); Red Cell Distribution Width 12.4 % (11.0-16.0)
[2023-04-12 09:29] LABS: Appearance Urine Cloudy; Color Urine Dark Yellow; Glucose Urine UA Negative (Negative); Leukocyte Esterase Urine Small (1+) (Negative); Nitrite Urine Negative (Negative); Specific Gravity - Urine >= 1.030 (1.005-1.025); UMIC TRIGGER UACC YES; Urine Blood Negative (Negative); Urine Ketones Trace mg/dL (Negative); Urine Protein Trace mg/dL (Neg-Trace)
[2023-04-12 09:30] LABS: UPreg QC Valid YES; Urine Pregnancy NEGATIVE (NEGATIVE)
[2023-04-12 09:32] LABS: Amphetamine Screen Urine Not Detected (Not Detect); Barbiturates, Urine Not Detected (Not Detect); Benzodiazepines Screen Urine Not Detected (Not Detect); Cannabinoid Screen Urine Not Detected (Not Detect); Cocaine Screen Urine Not Detected (Not Detect); Fentanyl, urine Not Detected (Not Detect); Opiate Screen Urine Not Detected (Not Detect); Phencyclidine Screen Urine Not Detected (Not Detect)
[2023-04-12 09:44] LABS: Bacteria Urine 1+ (None Seen); Hyaline Casts Urine 0-2 /LPF (0-2); RBC Urine 0-2 /HPF (0-2); UACC Culture Trigger YES
[2023-04-12 09:47] LABS: Alanine Aminotransferase 13 U/L (0-31); Albumin Level 4.1 g/dL (3.5-5.0); Alkaline Phosphatase 128 U/L (39-117); Anion Gap 13 (12-20); Aspartate Amino Transferase 13 U/L (5-31); Bilirubin Direct 0.2 mg/dL (0.0-0.5); Bilirubin Total 0.6 mg/dL (0.0-1.0); Blood Urea Nitrogen 6 mg/dL (9-16); Calcium 8.9 mg/dL (8.4-10.2); Carbon Dioxide 25 mmol/L (22-29); Chloride 105 mmol/L (96-108); Creatinine Clr Calc Pharmacy 87.1; Estimated Glomerular Filt Rate > 60; Ethanol < 10 mg/dL; Glucose Random 94 mg/dL (60-115); Lipase 18 U/L (8-78); Magnesium 1.9 mg/dL (1.6-2.6); Sodium 139 mmol/L (135-145); Total Protein 6.9 g/dL (6.5-8.0)
[2023-04-12 10:06] LABS: Free T4 (Free Thyroxine) 0.98 ng/dL (0.71-1.85); Thyroid Stimulating Hormone 1.53 uIU/mL (0.32-4.0)
[2023-04-12 12:00] VITALS: BP 115/79; PULSE 69; RESP 18; O2SAT 99
--- NOTE | 2023-04-12 12:21 | PC.NURSE ---
pt met with CARE team and is cleared to be discharged home with appt tomorrow with program
--- NOTE | 2023-04-12 13:43 | MHC.CARE ---
CARE Team responded to consult request to speak with this patient who self-presented to the ED this morning with report of feeling overwhelmed with stress and suffering from depression. Patient was seen in room 12 in the main ED, she was alert and oriented, appeared her stated age or younger, maintained eye contact, was polite and engaged. 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 Patient has four young children (12,6,5,1), father of the younger three is unavailable for any financial or other support and her family has been unable to even acknowledge her distress despite her telling them she is struggling. This is likely due to the fact that her brother committed suicide 9 months ago and mother found him though it sounds as if that has been a longstanding issue. Patient was hospitalized at [facility] when she was with her five year-old, stated it was not helpful and she was fearful of the other patients. Has been in therapy in the past and has ideas about two providers that she had been connected with previously. Is not looking for medication but said at this point she would be willing to accept any help, wants to feel stable and be a better parent, able to cope with stress. Patient is not suicidal, is future oriented and help seeking, does not require an inpatient psychiatric admission and would most benefit from the Partial Hospitalization Program here at [facility]. She is willing to change her schedule/take a leave to attend program and appears committed to the process. Intake confirmed for 04/13/23 at 11:00 am and patient will start the following day. ED Provider MAYRA Christine updated and in agreement with plan of care
[2023-04-13 10:33] LABS: Triiodothyronine T3 Total 116 ng/dL (76-181)
== END 2023-04-12 12:36 | disposition home or self-care (01) ==
PROVIDERS: Physician Assistant Medical; Emergency Provider Student in an Organized Health Care Education/Training Program; PCP Internal Medicine
DX: G47.00 Insomnia, unspecified (principal); F41.1 Generalized anxiety disorder; F43.0 Acute stress reaction; O90.6 Postpartum mood disturbance; Z79.899 Other long term (current) drug therapy
CPT/HCPCS: 36415; 80048; 80076; 80307; 81001; 81025; 83690; 83735; 84439; 84443; 84480; 85025; 87086; 93005; 99285

== ENCOUNTER 2023-04-13 12:06 | Outpatient (RCR) | payer OTHER, SELFPAY ==
--- NOTE | 2023-04-14 13:52 | PC.NURSE ---
Patient called and spoke to [facility] staff stating her son has been sick all night vomiting and will not be able to make it to the program as currently is going to an appointment with her son to f/u.
== END 2023-04-13 23:59 | disposition home or self-care (01) ==
LOC: HO.PHPA 12:06
PROVIDERS: Visit Provider Psychiatry & Neurology Psychiatry
DX: F33.2 Major depressive disorder, recurrent severe without psychotic features (principal); F41.1 Generalized anxiety disorder
CPT/HCPCS: 90791

== ENCOUNTER 2025-03-12 18:36 | Emergency (ER) | payer OTHER, SELFPAY ==
--- NOTE | ~2025-03-12 | XR_ITS ---
CLINICAL HISTORY: twisted knee heard snap Four views left knee. Findings: No acute fractures are seen. There is no definite malalignment. No significant joint effusion is seen. Impression: No acute fractures. This document has been electronically signed by: Chi Delgado MD on 03/12/2025 19:50:27
[2025-03-12 18:45] VITALS: BP 123/76; PULSE 108; RESP 19; TEMP 36.6; O2SAT 98; BMI 35.2
--- NOTE | 2025-03-12 18:45 | ED.LOWEXIN ---
HPI - Extremity Injury (Lower) General Chief Complaint: Extremity Injury, Lower Stated Complaint: playing basketball heard Left knee pop cant walk Related Data Previous Rx's ?Medication ?Instructions ?Recorded acetaminophen 500 mg tablet 500 mg PO Q6H PRN pain or fever 01/16/22 (Tylenol Extra Strength) #20 tabs cyclobenzaprine 5 mg tablet 5 mg PO Q8H PRN pain (scale score 01/16/22 7-10) 5 days #14 tabs lidocaine 5 % topical patch 1 patch topical DAILY PRN pain #30 01/16/22 (Lidoderm) ea naproxen 500 mg tablet 500 mg PO BID PRN pain 10 days #20 07/07/22 tabs diphenhydramine HCl 25 mg tablet 25 mg PO BEDTIME PRN sleep #14 tabs 04/12/23 (Benadryl Allergy) melatonin 5 mg tablet 5 mg PO BEDTIME PRN sleep #10 tabs 04/12/23 Allergies Allergy/AdvReac Type Severity Reaction Status Date / Time No Known Allergies Allergy Verified 03/12/25 18:46 PMFSH Past Medical History Medical History Fibromyalgia Lupus Social History Social History Household Members: Children Alcohol intake: unknown Patient Tobacco Use Status: Never used Tobacco Advance Directives: No Advance Directives Information Provided: No Do you have a plan to hurt others: No Plan Physical Exam Vital Signs: Vital Signs: Last Vital Signs Temp 98 F 03/12/25 18:45 Pulse 108 H 03/12/25 18:45 Resp 19 03/12/25 18:45 BP 123/76 03/12/25 18:45 Pulse Ox 98 03/12/25 18:45 O2 Del Method Room Air 03/12/25 18:45 BMI result Body Mass Index 35.2 Course Course Course Narrative: This is a Rapid Medical Examination (RME) performed by Pepito Dexter PA-C in triage. Full HPI, ROS, assessment and treatment plan per primary provider in the Main ED. 03/12/[id number] MAYRA Martinez Hx: 34 yo female here for eval of L knee pain s/p twisting injury while playing basketball [employer]. heard snap in L knee. able to ambulate and drive herself to ED. hx surgery in same knee. PE/vitals: no obvious swelling or deformity to L knee. able to extend. pain on flexion. Plan: xrs Reevaluation(s) Reevaluation #1: Patient left the emergency department before myself or any of the other clinicians could review or explain physical exam findings, test results, need or lack there of for additional testing, treatment options, or a treatment plan. Discharge Plan Discharge Clinical Impression: Sprain of right knee Patient Disposition: Left W/O Completing Treatment Prescriptions: No Action naproxen 500 mg tablet 500 mg PO BID PRN (Reason: pain) 10 Days Qty: 20 0RF acetaminophen [Tylenol Extra Strength] 500 mg tablet 500 mg PO Q6H PRN (Reason: pain or fever) Qty: 20 0RF lidocaine [Lidoderm] 5 % adhesive patch,medicated 1 patch topical DAILY MDD remove after 12 hours PRN (Reason: pain) Qty: 30 0RF Rx Instructions: leave on most painful area for up to 12 hrs cyclobenzaprine 5 mg tablet 5 mg PO Q8H PRN (Reason: pain (scale score 7-10)) 5 Days Qty: 14 0RF diphenhydramine HCl [Benadryl Allergy] 25 mg tablet 25 mg PO BEDTIME MDD may take 2 tabs prn PRN (Reason: sleep) Qty: 14 0RF melatonin 5 mg tablet 5 mg PO BEDTIME PRN (Reason: sleep) Qty: 10 0RF Discharge Date/Time: 03/13/25 02:47
== END 2025-03-13 02:47 | disposition left against medical advice (07) ==
LOC: HO.ED 03-13 02:30
PROVIDERS: Emergency Provider Emergency Medicine
DX: S83.92XA Sprain of unspecified site of left knee, initial encounter (principal); X50.1XXA Overexertion from prolonged static or awkward postures, initial encounter; Y93.67 Activity, basketball; Y92.9 Unspecified place or not applicable; Y99.9 Unspecified external cause status
CPT/HCPCS: 73564; 99281; 99283

== ENCOUNTER → 2025-03-12 18:46 | Outpatient (BNV) | payer OTHER, SELFPAY | PROVIDERS: PCP Internal Medicine; Visit Provider Radiology Diagnostic Radiology | DX: M25.562 Pain in left knee (principal) | CPT/HCPCS: 73564 ==

== ENCOUNTER 2025-06-16 07:09 | Emergency (ER) | payer OTHER, SELFPAY ==
--- NOTE | ~2025-06-16 | XR_ITS ---
CLINICAL HISTORY: FALL, HIP PAIN 3 view, pelvis and right hip Comparison: None provided Findings: No acute fracture or dislocation. No significant arthritic change. The soft tissues are unremarkable. IMPRESSION: No acute findings. This document has been electronically signed by: Rafael Lim MD on 06/16/2025 08:04:34
[2025-06-16 07:27] VITALS: BP 98/59; PULSE 77; RESP 16; TEMP 36.1; O2SAT 99; BMI 34.0
[2025-06-16 07:41] VITALS: BP 113/67; PULSE 85; RESP 14; TEMP 36.6; O2SAT 96
--- OUTSIDE RECORDS SUMMARY | 2025-06-16 07:41 | XMS_ITS | Clinical Summary ---
Author Organization [address] Address [address] [place] [id number] Phone Care Team Providers Care Warp Tension Tester Name Role Phone Rosario Benítez MD Primary Care Provider [phone] Allergies No known active allergies Medications hydroxychloroqu ine (PLAQUENIL) 200 mg tablet Take 1 tablet by mouth daily. 06/10/2021 Active EPINEPHrine (EPIPEN) 0.3 mg/0.3 mL injection Inject 0.3 mL (0.3 mg total) into the thigh if needed for anaphylaxis. Call 911 after use. 2 each 2 02/23/2025 Active cholecalciferol (Vitamin D3) 50 mcg (2,000 unit) capsule Take 1 capsule (2,000 Units total) by mouth 1 (one) time each day. 30 each 11 03/16/2025 03/16/20 26 Active ergocalciferol (VITAMIN D-2) 1,250 mcg (50,000 unit) capsule Take 1 capsule (50,000 Units total) by mouth 1 (one) time per week. 12 capsule 03/16/2025 06/08/20 25 Active Problems Problem Noted Date Diagnosed Date Hyperlipidemia 02/23/2025 Class 1 obesity due to exces s calories with serious comorbidity and body mass index (BMI) of 33.0 to 33.9 in adult 02/23/2025 MDD (major depressive disorder) 02/07/2021 Overview (11/09/2024): Pt reports she is not taking medication, unsure what medication (Zoloft is in med list) and stopped with pregancy. Pt also reports she stopped talking with therapist about 4 months ago because she is too busy, but feels like she is doing alright . Chronic bilateral low back pain with right-sided sciatica 12/20/2020 Overview (11/09/2024): Last Assessment & Plan: Recommend she continue to follow with her PCP for evaluation and management. Discussed that MRI in appears to be safe, however it would be reasonable to defer MRI until after as obtaining an MRI now would not likely change the management approach. She was encouraged to discuss further with her PCP. MDD (major depressive disord er), recurrent episode, moderate ([facility] V24, [facility] V28) 11/23/2019 Overview (11/09/2024): Follows with behavioral health, stopped cymbalta with +hCG Fibromyalgia 06/28/2019 SLE (systemic lupus erythema tosus) ([facility] V24, [facility] V28) 09/13/2015 Overview (11/09/2024): 2014: polyarthralgia, MANUEL positive, facial rash. Off and on treatment with hydroxychloroquine. Medication stopped by the patient during (2016-) Restarted hydroxychloroquine 12/17 MFM consult Baseline (<20 weeks) HELLP labs and P/C ratio - WNL, tP:C 0.12 Anti SSA and SSB antibodies ordered-negative ASA 162 mg daily for pre-eclampsia prevention starting 12 weeks Serial growth from 28 weeks BPP/NST weekly from 32 weeks PP TL Rheumatology consult - continue hydoxycholoquine 200mg daily Last Assessment & Plan: Encouraged patient to continue taking hydroxychloroquine and follow-up with her front line leader BECKY. Will need to start ASA at 12 weeks gestation Immunizations Name Administration Dates Next Due Influenza Quadravalent, MDCK , 0.5ml, preservative free (Flucelvax) 6mo and older 10/20/2022 Influenza trivalent, with preservative (Fluzone; Afluria) 6mo and older 11/18/2020 MMR, measles mumps and rubel la Live (Priorix; M-M-R II) 12mo and older 06/24/2022 PPD Test 01/10/2020, 8,03/27/2015,2013 Pfizer SARS-CoV-2 COVID-19, mRNA, LNP-S, preservative free 11/09/2021,10/10/2021 Tdap Tetanus diptheria acell ular pertussis (Boostrix; Adacel) 7yo and older 06/10/2021,07/20/2017,07/03/2016 Surgical History Surgery Date Site/Laterality Comments HAND SURGERY PROCEDURE: HISTORICAL HAND SURGERY KNEE SURGERY PROCEDURE: HISTORICAL KNEE SURGERY; COMMENT: 2013 OTHER SURGICAL HISTORY PROCEDURE: ---- OTHER ----; COMMENT: cyst in bilateral axilla Medical History Medical History Date Comments Left knee pain DX:Left knee hoda n Lupus (systemic lupus erythe matosus) ([facility] V24, [facility] V28) 06/12 DX:Lupus (systemic lupus erythematosus) ([facility]) Fibromyalgia 06/28/2019 DX:Fibromyalgia MDD (major depressive disord er), recurrent episode, moderate ([facility] V24, [facility] V28) 11/23/2019 DX:MDD (major depressive dis order), recurrent episode, moderate ([facility]) Back pain DX:Back pain Family History Medical History Relation Name Comments No Known Problems Brother x3 healthy brothers Heart attack Father Diabetes Maternal Grandfather colon c ancer Ovarian cancer Maternal Grandmother breas t cancer at 25, CAD Other: Lupus Mother No Known Problems Paternal Grandfather Breast cancer Paternal Grandmother liver cancer, alcholism No Known Problems Sister x 3 health y sisters Cervical cancer Neg Hx Uterine cancer Neg Hx Relation Name Status Comments Brother Alive Father Alive Maternal Grandfather Maternal Grandmother Alive Mother Alive Paternal Grandfather Alive Paternal Grandmother Sister Alive Social History Tobacco Use Types Packs/Day Years Used Date Smoking Tobacco: Never Smokeless Tobacco: Never Alcohol Use Standard Drinks/Week Comments No 0 (1 standard drink = 0.6 oz pur e alcohol) Housing Instability Answer Date Recorde d Are you worried that in the next 2 months you may not have stable housing? No 05/04/2025 Food Access & Nutrition Answer Date Rec orded Do you have access to a vari ety of food including fruits and vegetables? Yes 05/04/2025 Health Literacy Answer Date Recorded How often do you need to hav e someone help you when you read instructions, pamphlets, or other written material from your doctor or pharmacy? Never 05/04/2025 Caregiver: How often do you need to have someone help you when you read instructions, pamphlets, or other written material from your doctor or pharmacy? Not on file 05/04/2025 Financial Risk Answer Date Recorded How hard is it for you to pa y for the very basics like food, housing, medical care, and air conditioning / heating? Very hard 05/04/2025 Transportation Answer Date Recorded Has the lack of transportati on kept you from meetings, work, or from getting things needed for daily living? No Has the lack of transportati on kept you from medical appointments or from getting medications? No 05/04/2025 Social Isolation Answer Date Recorded How often do you feel lonely or isolated from those around you? Sometimes 05/04/2025 Food Risk Answer Date Recorded Within the past 12 months we worried whether our food would run out before we got money to buy more. Never true 05/04/2025 Within the past 12 months th e food we bought just didn't last and we didn't have money to get more. Never true 05/04/2025 Dependent Care Answer Date Recorded Do you need help finding or paying for care for your loved ones. For example, child care sitter or elderly care for an older adult? No 05/04/2025 Education Answer Date Recorded Do you think completing more education or training, like finishing a GED, going to college, or learning a trade, would be helpful for you? No 05/04/2025 Employment and Income Answer Date Recor ded During the last four weeks, have you been actively looking for work? No 05/04/2025 Living Situation Answer Date Recorded What is your living situation? 0 05/04/2025 Comments Unknown Sex and Gender Information Value Date Recorded Sex Assigned at Not on file Legal Sex Female 11:11 PM EST Gender Identity Not on file Sexual Orientation Not on file Obstetrics History Last Filed Vital Signs Vital Sign Reading Time Taken Comments Blood Pressure 98/62 02/23/2025 12:54 PM EDT Pulse 83 02/23/2025 12:54 PM EDT Temperature 36.5 C (97.7 F) 02/23/2025 12:54 PM EDT Respiratory Rate 12 02/23/2025 12:54 PM EDT Oxygen Saturation - - Inhaled Oxygen Concentration - - Weight 78.5 kg (173 lb) 02/23/2025 12:54 PM EDT Height 152.4 cm (5') 02/23/2025 12:54 PM EDT Body Mass Index 33.79 02/23/2025 12:54 PM EDT Plan of Treatment Upcoming Encounters Date Type Department Care Team (Late st Contact Info) Description 07/12/2025 10:30 AM EDT Consult Bariatric Surgery - [place] [address] [place] [address] [place], [place] [address] [place] [address] Health Maintenance Due Date Last Done Comments Influenza Vaccine (#1) 2025 10/20/2022, 2019 COVID-19 Vaccine ( season) 2025 03/09/2022, 11/09/2021, 10/10/2021, Additional history exists Postponed from 07/30/2024 (Patient Refused) Cervical Cancer Screening: HPV 03/19/2026 03/19/2021 Depression Screening 05/04/2026 05/04/2025, 02/24/20 25 Social Influencers of Health Screening 05/04/2026 05/04/2025, 02/23/2025 Cholesterol Screening (Lipid Panel) 11/13/2029 11/13/2024, 01/29/2020 DTaP,Tdap,and Td Vaccines (12 - Td or Tdap) 05/16/2034 05/16/2024, 06/10/2021, 07/20/2017, Additional history exists HIB Vaccines Completed 09/28/1993, 10/31, 1992, Additional history exists Hepatitis B Vaccines Completed 06/28/1996, 03/28/1996, 12/29/1995 IPV Vaccines Completed 06/28/1996, 08/31, 1992, Additional history exists Meningococcal ACWY Vaccine Completed 07/03/2008 Varicella Vaccines Completed 07/03/2008, 05/07/2000 HPV Vaccines Completed 07/03/2009, 06/2008, 07/03/2008 HIV Screening Completed 02/07/2021 Hepatitis C Screening Completed 02/07/2021 MMR Vaccines Completed 06/24/2022, 01/29, 04/28/1993 Hepatitis A Vaccines Aged Out No long er eligible based on patient's age to complete this topic Meningococcal B Vaccine Aged Out No l onger eligible based on patient's age to complete this topic Pneumococcal Vaccine: Pediatrics (0 to 5 Years) and At-Risk Patients (6 to 49 Years) Aged Out No longer eligible based on patient's age to complete this topic RSV Immunization Patients Under 20 months Aged Out No longer eligible based on patient's age to complete this topic Procedures Procedure Name Priority Date/Time Associated Diagnosis Comments LIPID PANEL WITH REFLEX TO DIRECT LDL Routine 11/13/2024 8:24 AM EST Weight gain HPV Routine 03/19/2021 HEPATITIS C SCREENING Routine 02/07/2021 HIV SCREENING Routine 02/07/2021 from Last 3 Months or Most Recently Relevant to Health Maintenance Results * (ABNORMAL) Lipid panel with reflex to direct LDL (11/13/2024 8:24 AM EST) Cholesterol 202(H) 0 - 200 mg/dL LAB CHEMISTRY METHOD 11/13/2024 10:36 AM [facility] Triglycerides 129 0 - 150 mg/dL LAB CHEMISTRY METHOD 11/13/2024 10:36 AM EST [facility] HDL 52 >=40 mg/dL LAB CHEMISTRY METHOD 11/13/2024 10:36 AM EST [facility] LDL Calculated 124(H) 0 - 100 mg/dL LAB CHEMISTRY METHOD 11/13/2024 10:36 AM [facility] VLDL Cholesterol Volodymyr 25.8 mg/dL LAB CHEMISTRY METHOD 11/13/2024 10:36 AM [facility] Non HDL Chol. (LDL+VLDL) 150(H) <145 mg/dL LAB CHEMISTRY METHOD 11/13/2024 10:[address] [facility] Chol/HDL Ratio 3.9 0.0 - 4.4 LAB CHEMISTRY METHOD 11/13/2024 10:36 AM EST [facility] Blood Venous blood specimen / Unknown Venipuncture / Unknown 11/13/2024 8:24 AM EST 11/13/2024 8:24 AM EST Rosario Benítez MD LAB BLOOD ORDERABLES Final Resul t [facility] [address] [place] [address], * Cervical Cancer Screening: HPV (03/19/2021) [facility] Cervical Cancer Screening: HPV No Interpretation , Abstracted Historical Provider HEALTH MAINTENANCE Final Result * HIV Screening (02/07/2021) [facility] HIV Screening Abstracted Historical Provider HEALTH MAINTENANCE Final Result * Hepatitis C Screening (02/07/2021) [facility] Hepatitis C Screening Abstracted Historical Provider HEALTH MAINTENANCE Final Result from Last 3 Months or Most Recently Relevant to Health Maintenance Insurance [facility] [address] Care Teams Warp Tension Tester Relationship Specialty Start Date End Date Rosario Benítez MD [address] [place] [id number] PCP - General Internal Medicine 11/10/24
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
--- OUTSIDE RECORDS SUMMARY | 2025-06-16 07:41 | XMS_ITS | Encounter Summary ---
Author Organization [facility] Address [address] [place] [id number] Phone Care Team Providers Care Pond Supervisor Name Role Phone Betty Hamilton DO Primary Care Provider [phone] Encounter Details Date Type Department Care Team (Late st Contact Info) Description 03/10/2012 Documentation [facility] [address] [place] [address] Family Medicine, Physician [address] [place], [place] [id number] Social History Tobacco Use Types Packs/Day Years Used Date Smoking Tobacco: Never Assessed Comments Unknown Sex and Gender Information Value Date Recorded Sex Assigned at Not on file Legal Sex Female 4:44 PM EDT Gender Identity Not on file Sexual Orientation Not on file documented as of this encounter Plan of Treatment Not on file documented as of this encounter Visit Diagnoses Not on filedocumented in this encounter Care Teams Pond Supervisor Relationship Specialty Start Date End Date Betty Hamilton DO [address] [place] [address] Bernadette RUDDY [id number] PCP - General 07/09/17 03/10/23 documented as of this encounter
--- NOTE | 2025-06-16 07:46 | PC.NURSE ---
Patient presents to ED c/o right lower hip pain rated 8/10 radiating pain towards back. Patient was basketball with her kids when she fell on her right hip. Denies hearing a popping, cracking, or tearing sound. No external rotation noted +CMS +ROM. Denies numbness and tingling. Xray taken of right hip, results pending VSS up to date. Provider in to see patient. Plan of care on going
--- NOTE | 2025-06-16 08:34 | ED_ITS ---
HPI - Extremity Injury (Lower) General Chief Complaint: Extremity Injury, Lower Stated Complaint: fall r leg inj Time Seen by Provider: 06/16/25 08:01 Source: patient Mode of arrival: ambulatory Limitations: no limitations History of Present Illness ED Provider: DR. Cheema HPI Narrative: 35-year-old female came in for evaluation of right hip pain after she fell last week while playing basketball landing on her right hip. Patient was able to ambulate with slight pain pain is been worsening over the past few days. Pain is localized to the right hip. Increased with movement and bearing weight on right hip, no fever, chills. Patient declined any chance of being . Related Data Previous Rx's ?Medication ?Instructions ?Recorded acetaminophen 500 mg tablet 500 mg PO Q6H PRN pain or fever 01/16/22 (Tylenol Extra Strength) #20 tabs cyclobenzaprine 5 mg tablet 5 mg PO Q8H PRN pain (scal e score 01/16/22 7-10) 5 days #14 tabs lidocaine 5 % topical patch 1 patch topical DAILY PRN pain #30 01/16/22 (Lidoderm) ea naproxen 500 mg tablet 500 mg PO BID PRN pain 10 da ys #20 07/07/22 tabs diphenhydramine HCl 25 mg tablet 25 mg PO BEDTIME PRN sleep #14 tabs 04/12/23 (Benadryl Allergy) melatonin 5 mg tablet 5 mg PO BEDTIME PRN sleep #1 0 tabs 04/12/23 Allergies Allergy/AdvReac Type Severity Reaction Status Date / Time No Known Allergies Allergy Verified 06/16/25 07:30 Review of Systems Review of Systems: All other systems are reviewed and are negative Constitutional: Reports as per HPI and Reports no additional constitutional complaints Eyes: Reports as per HPI and Reports no additional eye complaints Reports system reviewed and no additional complaints, except as documented Cardiovascular: Reports as per HPI and Reports no additional cardiovascular complaints Respiratory: Reports as per HPI and Reports no additional respiratory complaints Gastrointestinal: Reports as per HPI and Reports no additional gastrointestinal complaints Genitourinary: Reports no additional female genitourinary complaints Musculoskeletal: Reports no additional musculoskeletal complaints Skin/Breast: Reports system reviewed and no additional complaints, except as docu Psychiatric: Reports no additional psychiatric complaints Endocrine: Reports no additional endocrine complaints Hematologic/Lymphatic: Reports no additional hematologic/lymphatic complaints Allergic/Immunologic: Reports no additional allergic/immunologic complaints Reports system reviewed and no additional complaints, except as documented and Reports Abnormal speech present [facility] Past Medical History Medical History Fibromyalgia Lupus Social History Social History Household Members: Children Alcohol intake: unknown Patient Tobacco Use Status: Never used Tobacco Smoked in Last 30 Days: No Use of substances other than those prescribed or required for medical reasons: No Advance Directives: No Advance Directives Information Provided: No Do you have a plan to hurt others: No Plan Patient : No Physical Exam Vital Signs: Vital Signs: Last Vital Signs Temp 97.9 F 06/16/25 07:41 Pulse 85 06/16/25 07:41 Resp 14 06/16/25 07:41 BP 113/67 06/16/25 07:41 Pulse Ox 96 06/16/25 07:41 O2 Del Method Room Air 06/16/25 07:41 BMI result Body Mass Index 34.0 Vital signs have been reviewed and appear to be correct. Blood pressure elevated. Heart rate normal. Respiratory rate normal. Temperature normal. Oxygen saturation normal. Appearance: Alert. Oriented X3. No acute distress. Head: Normal external exam. Normocephalic. Atraumatic. No Hanks signs noted. No raccoon eyes noted Eyes: PERRLA. EOMI. Conjunctiva and sclera normal. Eyelids normal. ENT: TM's Normal. Pharynx normal. Uvula midline. Moist mucous membranes. No trismus noted. No drooling noted. No muffled voice noted. Neck: Normal inspection. Neck supple. FROM. No adenopathy. Thyroid Normal. No meningeal signs. No neck mass noted. CVS: Normal heart rate and rhythm. Heart sound normal. No murmurs noted. Pulses normal throughout. Respiratory: No respiratory distress. Painless inspiration. Breath sounds normal. No wheezes/rales/rhonchi noted. Chest nontender. No accessory muscle usage noted or decreased air movement noted. Abdomen: Soft and nontender. Bowel sounds normal in all 4 quadrants. No distention noted. No organomegaly noted. No visible injury noted. Back: No CVA tenderness. Full range of motion noted. Skin: Skin warm and dry. Normal skin color. Normal skin turgor. No maria del carmen hes/lesions/lacerations noted. Extremities: Tenderness over right hip with no deformity. Limited range of motion due to pain. Neuro: Oriented X 3. Cranial nerve exam: II-XII are grossly intact No motor deficit. No sensory deficit. Reflexes normal. Course Reevaluation(s) Reevaluation #1: S/p mechanical fall while playing basketball 5 days ago, x-ray showed no fracture or dislocation. Able to ambulate in the emergency department. Time: 08:36 Medical Decision Making Differential Diagnosis Differential Diagnoses: The differential diagnosis associated with the presentation includes (Right hip sprain, sciatica, right hip fracture) Admission/Observation Consideration of admission/observation: Escalation of care including admi ssion/observation considered Independent Interpretation I performed an independent interpretation of an: Plain X-Ray (Right hip x-ray: No acute fracture or dislocation.) Radiology Impression Discussion of test interpretation with radiology: I have reviewed the radiologist's reading. Discharge Plan Discharge Clinical Impression: Sprain of right hip Patient Disposition: Home, Self-Care Instructions: Hip Sprain (ED) Additional Instructions: Take ehyy-zuk-yzeblza ibuprofen tablet 200 mg every 6 hours if needed for pain. Rest. Heating pad. Prescriptions: No Action naproxen 500 mg tablet 500 mg PO BID PRN (Reason: pain) 10 Days Qty: 20 0RF acetaminophen [Tylenol Extra Strength] 500 mg tablet 500 mg PO Q6H PRN (Reason: pain or fever) Qty: 20 0RF lidocaine [Lidoderm] 5 % adhesive patch,medicated 1 patch topical DAILY MDD remove after 12 hours PRN (Reason: pain) Qty: 30 0RF Rx Instructions: leave on most painful area for up to 12 hrs cyclobenzaprine 5 mg tablet 5 mg PO Q8H PRN (Reason: pain (scale score 7-10)) 5 Days Qty: 14 0RF diphenhydramine HCl [Benadryl Allergy] 25 mg tablet 25 mg PO BEDTIME MDD may take 2 tabs prn PRN (Reason: sleep) Qty: 14 0RF melatonin 5 mg tablet 5 mg PO BEDTIME PRN (Reason: sleep) Qty: 10 0RF Referrals: Rosario Benítez MD [Primary Care Provider, Internal Medicine] Stand Alone Forms: Work/School Release Print Language: [place]dean
[2025-06-16 08:47] VITALS: BP 101/67; PULSE 74; RESP 14; TEMP 36.8; O2SAT 97
== END 2025-06-16 08:50 | disposition home or self-care (01) ==
PROVIDERS: Emergency Provider Emergency Medicine; PCP Internal Medicine
DX: S73.101A Unspecified sprain of right hip, initial encounter (principal); W18.39XA Other fall on same level, initial encounter; M25.551 Pain in right hip; Y93.67 Activity, basketball; Y92.9 Unspecified place or not applicable; Y99.9 Unspecified external cause status
CPT/HCPCS: 73502; 99283; 99284

== ENCOUNTER → 2025-06-16 07:30 | Outpatient (BNV) | payer OTHER, SELFPAY | PROVIDERS: Emergency Provider Emergency Medicine; PCP Internal Medicine; Visit Provider Specialist | DX: M25.551 Pain in right hip (principal); W19.XXXA Unspecified fall, initial encounter | CPT/HCPCS: 73502 ==

== ENCOUNTER → 2025-09-27 09:20 | Outpatient (BNVA) | payer OTHER, SELFPAY | PROVIDERS: PCP Internal Medicine; Visit Provider Emergency Medicine | DX: S46.812A Strain of other muscles, fascia and tendons at shoulder and upper arm level, left arm, initial encounter (principal); W50.0XXA Accidental hit or strike by another person, initial encounter; Z02.79 Encounter for issue of other medical certificate | CPT/HCPCS: 99202 ==